=== PATIENT | male | born 1980 | race Caucasian/White ===

== ENCOUNTER 2016-10-17 16:58 | Emergency (ER) | payer MEDICAID ==
[~2016-10-17] VITALS: Ht 182.9 cm; Wt 78.5 kg
[~2016-10-17 16:58] MED LIST: LORTAB 5/500 501 TAB PO; ULTRAM50 MG PO
--- OUTSIDE RECORDS SUMMARY | 2016-10-17 17:22 | External Medical Summary Rpt ---
Author Author , GIFTY DURBIN Address Unknown Phone [email or web address] Care Team Providers Care Senior Marketing Coordinator Name Role Phone [facility] Unavailable Unavailable PHYSICIANS, [facility] Unavailable Unavailable MEDICAL GROUP, [facility] MONTOYA HOW, MONTOYA Unavailable Unavailable HOW BRENYO MAR, BRENYO Unavailable Unavailable MAR [facility], Un[facility] Unavailable [facility] Unavailable Unavailable [facility], [facility] HALLAK PAT, HALLAK Unavailable Unavailable PAT MINI BHUPINDER, MINI BHUPINDER Unavailable Unavailable RICK PIR, RICK PIR Unavailable Unavailable [facility], [facility] Unavailable Unavailable NEELY MAY, NEELY MAY Unavailable Unavailable MEENU MAR, MEENU Unavailable Unavailable MAR SOKAN BAB, SOKAN BAB Unavailable Unavailable SOKAN BAB, SOKAN BAB Unavailable Unavailable SPANIER MAR, SPANIER Unavailable Unavailable MAR JASPER VALERIO, JASPER VALERIO Unavailable Unavailable Purpose Continuity of Care Document - 01-05-2015 through 2016 Problems Code Diagnosis DOS Provider Status L0201 CUTANEOUS 09-01-2015 [facility] [id number] CELLULITIS 09-01-[address] [facility] B9562 METHICILLIN 08-31-2015 [facility] R[facility]ST [facility] CAUSE DZ CLASS ELSW K122 CELLULITIS 08-31-2015 [facility] AND [facility]SCESS [facility] K130 DISEASES OF 08-31-2015 [facility] LIPS [facility] L45625 FURUNCLE OF 08-31-2015 [facility] RIGHT [facility] Q13290 FURUNCLE OF 08-31-2015 [facility] L69686 CELLULITIS 08-31-2015 [facility] OF RIGHT EMERGENCY [facility] PHYS PSC [id number] UNDERDOSING 08-31-2015 [facility] OTH [facility] ANTIBIOTICS INIT ENCNTR Z8614 PERSONAL HX 08-31-2015 [facility] RSIST STAPH INFECTION [id number] CELLULITIS 08-10-2015 [facility] R52 PAIN 08-10-2015 [facility] [id number] ACUTE EMBO 08-09-2015 [facility] THROMB UNS [facility] DEEP VEINS MEDICAL UNS LOW GROUP EXTREM L0390 CELLULITIS 08-09-2015 [facility] Z720 TOBACCO USE 08-07-2015 [facility] J208 ACUTE 01-10-2015 [facility] BRONCHITIS EMERGENCY DUE TO PHYS PSC OTHER SPEC ORGANISMS J209 ACUTE 01-10-2015 [facility]ONCH[facility]IS [facility] K088 OTH SPEC 01-08-2015 [facility] PRIMARY DISORDERS CARE TEETH & PHYSICIANS SUPPORTING STRUCTURES X63345 EPILEPSY 01-05-2015 SYDNEY SIMON UNS NOT INTRACT W/O STATUS EPILEPTICUS Z760 ENCOUNTER 01-05-2015 SYDNEY SIMON FOR ISSUE OF REPEAT PRESCRIPTIO N Procedures Procedure DOS Code Location Performer Comment [facility] [address] [facility] [address] [place] [address] MEDICAL MANAGEMEN GROUP T > 30 MIN SBSQ [address]/DAY MEDICAL 35 GROUP MINUTES INITIAL [address]/DAY MEDICAL 70 GROUP MINUTES SBSQ [address]/DAY MEDICAL 25 GROUP MINUTES SBSQ [address]/[facility] MEDICAL 25 GROUP MINUTES SBSQ [address]/DAY MEDICAL 35 GROUP MINUTES INITIAL [address]/DAY MEDICAL 70 GROUP MINUTES Encounters Encounter Start End Date Code Location Performer Type Date EMERGENCY 78732 [facility] DE[facility] 6 6 EMERGENCY HOW VISIT PHYS PSC HIGH SEVERITY& THREAT [facility] 6 6 [facility] EM[facility]GENCY 08059 [facility] DEPT 6 6 EMERGENCY MAR VISIT PHYS PSC HIGH SEVERITY& THREAT FUN EMERGENCY 49914 [facility] 6 6 SOLEDAD MAR DEPARTMEN EMERGENCY T VISIT SERV MODERATE SEVERITY EMERGENCY 94865 [facility] 5 5 EMERGENCY DEPARTMEN PHYS PSC T VISIT MODERATE SEVERITY HOSPITAL [facility] - 5 5 [facility] T EMERGENCY 09955 [place] 5 5 [facility] DEPART[facility]OSP T VISIT LOW/MODER SEVERITY EMERGENCY 09171 NABEEL VALERIO 5 5 PRIMARY DEPARTMEN CARE T VISIT PHYSICIAN MODERATE S SEVERITY EMERGENCY 23083 SYDNEY SIMON 5 5 DEPARTMEN T VISIT MODERATE SEVERITY
--- OUTSIDE RECORDS SUMMARY | 2016-10-17 17:22 | External Medical Summary Rpt ---
Author Author , GIFTY DURBIN Address Unknown Phone [email or web address] Care Team Providers Care Windows Mobile Developer Name Role Phone [facility] Unavailable Unavailable PHYSICIANS, [facility] Unavailable Unavailable MEDICAL GROUP, [facility] MONTOYA HOW, MONTOYA Unavailable Unavailable HOW BRENYO MAR, BRENYO Unavailable Unavailable MAR [facility], Unavailable Unavailable [facility] Unavailable Unavailable PHYS [facility]SC, [...] Diagnosis DOS Provider Status L0201 CUTANEOUS 09-01-2015 [facility] [id number] CELLULITIS 09-01-2015 [facility]ACE [facility] B9562 METHICILLIN 08-31-2015 [facility] RSIST [facility] CAUSE DZ CLASS ELSW K122 CELLULITIS 08-31-2015 [facility] AND ABSCESS [facility] K130 DISEASES OF 08-31-2015 [facility] LIPS [facility] L08141 FURUNCLE OF 08-31-2015 [facility] N47821 FURUNCLE OF 08-31-2015 [facility] LEFT [facility] F62440 CELLULITIS 08-31-2015 [facility] OF RIGHT EMERGENCY [place] PHYS PSC [id number] UNDERDOSING 08-31-2015 [facility] OTH [facility] ANTIBIOTICS INIT ENCNTR Z8614 PERSONAL HX 08-31-2015 [facility] RSIST STAPH INFECTION S10533 CELLULITIS 08-10-2015 [facility] R52 PAIN 08-10-2015 [facility] [id number] ACUTE EMBO 08-09-2015 [facility] THROMB UNS HEALTH DEEP VEINS MEDICAL UNS LOW GROUP EXTREM L0390 CELLULITIS 08-09-2015 [facility] Z720 TOBACCO USE 08-07-2015 [facility] J208 ACUTE 01-10-2015 [facility] BRONCHITIS EMERGENCY DUE TO PHYS PSC OTHER SPEC ORGANISMS J209 ACUTE 01-10-2015 [facility]CH[facility] K088 OTH SPEC 01-08-2015 [facility] PRIMARY DISORDERS CARE TEETH & PHYSICIANS SUPPORTING STRUCTURES D28960 EPILEPSY 01-05-2015 SYDNEY SIMON UNS NOT INTRACT W/O STATUS EPILEPTICUS Z760 ENCOUNTER 01-05-2015 SYDNEY SIMON FOR ISSUE OF REPEAT PRESCRIPTIO N Procedures Procedure DOS Code Location Performer Comment HOSPITAL 55771 [facility] DISCHARGE [address] [place] [address] MEDICAL MANAGEMEN GROUP T > 30 MIN SBSQ [address]/DAY MEDICAL 35 GROUP MINUTES INITIAL [address]/DAY MEDICAL 70 GROUP MINUTES SBSQ [address]/DAY MEDICAL 25 GROUP MINUTES SBSQ [address] MEDICAL 25 GROUP MINUTES SBSQ [address]/DAY MEDICAL 35 GROUP MINUTES INITIAL [address]/DAY MEDICAL 70 GROUP MINUTES Encounters Encounter Start End Date Code Location Performer Type Date EMERGENCY 94165 [place] [facility] DEPT 6 6 EMERGENCY HOW VISIT PHYS PSC HIGH SEVERITY& THREAT [facility] 6 6 [facility] EMERGENCY 95094 [facility] DE[facility] 6 6 EMERGENCY MAR VISIT PHYS PSC HIGH SEVERITY& THREAT FUN EMERGENCY 49277 [facility] 6 6 SOLEDAD MAR DEPARTMEN EMERGENCY T VISIT SERV MODERATE SEVERITY EMERGENCY 58765 [facility] 5 5 EMERGENCY DEPARTMEN PHYS PSC T VISIT MODERATE SEVERITY HOSPITAL [facility] - 5 5 [facility] T EMERGENCY [address]48 [place] 5 5 [facility] DEPART[facility]OSP T VISIT LOW/MODER SEVERITY EMERGENCY 46204 [facility] JASPER VALERIO 5 5 PRIMARY DEPARTMEN CARE T VISIT PHYSICIAN MODERATE S SEVERITY EMERGENCY 51682 SYDNEY SIMON 5 5 DEPARTMEN T VISIT MODERATE SEVERITY
--- OUTSIDE RECORDS SUMMARY | 2016-10-17 17:22 | External Medical Summary Rpt ---
Demographics Preferred Language [place] Islander Marital Status Unknown Confucianism Affiliation Unknown Race Unknown Ethnic Group Unknown Author Author , LOYD DURBIN Address Unknown Phone [email or web address] Immunization Name Date Rout CVX Reac Dose Comm Prov Is Faci e tion ent ider Refu lity Give sed n Td 05-2 9 999 Hist H149 No H149 ([place] 07-21 [facility] lt), 99 al Info adso rmat rbed ion - Sour ce Unsp ecif ied
--- OUTSIDE RECORDS SUMMARY | 2016-10-17 17:22 | External Medical Summary Rpt ---
Author Author , GIFTY DURBIN Address Unknown Phone [email or web address] Care Team Providers Care Farmworker Poultry Name Role Phone [facility] Unavailable Unavailable PHYSICIANS, [facility] Unavailable Unavailable MEDICAL GROUP, [facility] MONTOYA HOW, MONTOYA Unavailable Unavailable HOW BRENYO MAR, BRENYO Unavailable Unavailable MAR [facility], Unavailable Unavailable [facility] Unavailable Unavailable PHYS PSC, [...] Diagnosis DOS Provider Status L0201 CUTANEOUS 09-01-2015 [facility] [id number] CELLULITIS 09-01-2015 [facility] B9562 METHICILLIN 08-31-2015 [facility] R[facility]ST [facility] CAUSE DZ CLASS ELSW K122 CELLULITIS 08-31-2015 [facility] AND [facility]ESS [facility] K130 DISEASES OF 08-31-2015 [facility] LIPS [facility] [id number] FURUNCLE OF 08-31-2015 [facility] D46390 FURUNCLE OF 08-31-2015 [facility] LEFT [facility] F88499 CELLULITIS 08-31-2015 [facility] OF RIGHT EMERGENCY [place] PHYS PSC [id number] UNDERDOSING 08-31-2015 [facility] OTH [facility] ANTIBIOTICS INIT ENCNTR Z8614 PERSONAL HX 08-31-2015 [facility] RSIST STAPH INFECTION I06644 CELLULITIS 08-10-2015 [facility] R52 PAIN 08-10-2015 [facility] Q97815 ACUTE EMBO 08-09-2015 [facility] THROMB UNS HEALTH DEEP VEINS MEDICAL UNS LOW GROUP EXTREM L0390 CELLULITIS 08-09-2015 [facility] Z720 TOBACCO USE 08-07-2015 [facility] J208 ACUTE 01-10-2015 [facility] BRONCHITIS EMERGENCY DUE TO PHYS PSC OTHER SPEC ORGANISMS J209 ACUTE 01-10-2015 [facility]ONCH[facility]IS [facility] K088 OTH SPEC 01-08-2015 [facility] PRIMARY DISORDERS CARE TEETH & PHYSICIANS SUPPORTING STRUCTURES B50154 EPILEPSY 01-05-2015 SYDNEY SIMON UNS NOT INTRACT W/O STATUS EPILEPTICUS Z760 ENCOUNTER 01-05-2015 SYDNEY SIMON FOR ISSUE OF REPEAT PRESCRIPTIO N Procedures Procedure DOS Code Location Performer Comment HOSPITAL 84348 [facility] [address] [place] [address] MEDICAL MANAGEMEN GROUP T > 30 MIN SBSQ [address]/DAY MEDICAL 35 GROUP MINUTES INITIAL [address]/DAY MEDICAL 70 GROUP MINUTES SBSQ [address]/DAY MEDICAL 25 GROUP MINUTES SBSQ [address]/[facility] MEDICAL 25 GROUP MINUTES SBSQ [address]/DAY MEDICAL 35 GROUP MINUTES INITIAL [address]/DAY MEDICAL 70 GROUP MINUTES Encounters Encounter Start End Date Code Location Performer Type Date EMERGENCY 79030 [facility] DEPT 6 6 EMERGENCY HOW VISIT PHYS PSC HIGH SEVERITY& THREAT [facility] 6 6 [facility] EMERGENCY 85246 [facility] DEPT 6 6 EMERGENCY MAR VISIT PHYS PSC HIGH SEVERITY& THREAT FUN EMERGENCY 71980 [facility] 6 6 SOLEDAD MAR DEPARTMEN EMERGENCY T VISIT SERV MODERATE SEVERITY EMERGENCY 13069 [facility] 5 5 EMERGENCY DEPARTMEN PHYS PSC T VISIT MODERATE SEVERITY HOSPITAL [facility] - 5 5 [facility] T EMERGENCY 98902 [facility] 5 5 [facility]OSP T VISIT LOW/MODER SEVERITY EMERGENCY 83851 NABEEL VALERIO 5 5 PRIMARY DEPARTMEN CARE T VISIT PHYSICIAN MODERATE S SEVERITY EMERGENCY 50923 SYDNEY SIMON 5 5 DEPARTMEN T VISIT MODERATE SEVERITY
--- OUTSIDE RECORDS SUMMARY | 2016-10-17 17:22 | External Medical Summary Rpt ---
Demographics Preferred Language Omani Marital Status Unknown Quaker Affiliation Unknown Race Unknown Ethnic Group Unknown Author Author , LOYD DURBIN Address Unknown Phone [email or web address] Immunization Name Date Rout CVX Reac Dose Comm Prov Is Faci e tion ent ider Refu lity Give sed n Td 05-2 9 999 Hist H149 No H149 ([place] 07-21 [facility] lt), 99 al Info adso rmat rbed ion - Sour ce Unsp ecif ied
--- OUTSIDE RECORDS SUMMARY | 2016-10-17 17:22 | External Medical Summary Rpt ---
Author Author , GIFTY DURBIN Address Unknown Phone [email or web address] Care Team Providers Care Solar Field Service Technician Name Role Phone [facility] Unavailable Unavailable PHYSICIANS, [facility] Unavailable Unavailable MEDICAL GROUP, [facility] MONTOYA HOW, MONTOYA Unavailable Unavailable HOW BRENYO MAR, BRENYO Unavailable Unavailable MAR [facility], Unavailable Unavailable [facility] Unavailable Unavailable PHYS [facility], [...] Diagnosis DOS Provider Status L0201 CUTANEOUS 09-01-2015 [facility] [id number] CELLULITIS 09-01-2015 [facility] OF FACE [facility] B9562 METHICILLIN 08-31-2015 CENTRAL RSIST [facility] CAUSE DZ CLASS ELSW K122 CELLULITIS 08-31-2015 [facility] AND ABSCESS [facility] K130 DISEASES OF 08-31-2015 [facility] LIPS [facility] F88252 FURUNCLE OF 08-31-2015 [facility]AL RIGHT [facility] S00569 FURUNCLE OF 08-31-2015 [facility]AL LEFT LOWER [facility] L02424 CELLULITIS 08-31-2015 CENTRAL OF RIGHT EMERGENCY [place]OWER [place] PHYS PSC [id number] UNDERDOSING 08-31-2015 CENTRAL OTH [facility] ANTIBIOTICS INIT ENCNTR Z8614 PERSONAL HX 08-31-2015 [facility] RSIST STAPH INFECTION K84511 CELLULITIS 08-10-2015 [facility] R52 PAIN 08-10-2015 [facility] G46003 ACUTE EMBO 08-09-2015 EPISCOPAL THROMB UNS HEALTH DEEP VEINS MEDICAL UNS LOW GROUP EXTREM L0390 CELLULITIS 08-09-2015 [facility] Z720 TOBACCO USE 08-07-2015 [facility] J208 ACUTE 01-10-2015 C[facility]AL BRONCHITIS EMERGENCY DUE TO PHYS PSC OTHER SPEC ORGANISMS J209 ACUTE 01-10-2015 [facility] BRONCHITIS [facility] K088 OTH SPEC 01-08-2015 [facility] PRIMARY DISORDERS CARE TEETH & PHYSICIANS SUPPORTING STRUCTURES Z51855 EPILEPSY 01-05-2015 SYDNEY SIMON UNS NOT INTRACT W/O STATUS EPILEPTICUS Z760 ENCOUNTER 01-05-2015 SYDNEY SIMON FOR ISSUE OF REPEAT PRESCRIPTIO N Procedures Procedure DOS Code Location Performer Comment HOSPITAL 33453 [facility] DIS[facility]GE [address] [place] [address] MEDICAL MANAGEMEN GROUP T > 30 MIN SBSQ [address]/DAY MEDICAL 35 GROUP MINUTES INITIAL [address]/DAY MEDICAL 70 GROUP MINUTES SBSQ [address]/DAY MEDICAL 25 GROUP MINUTES SBSQ [address] MEDICAL 25 GROUP MINUTES SBSQ [address]/DAY MEDICAL 35 GROUP MINUTES INITIAL [address]/DAY MEDICAL 70 GROUP MINUTES Encounters Encounter Start End Date Code Location Performer Type Date EMERGENCY 74292 [place] [facility] DEPT 6 6 EMERGENCY HOW VISIT PHYS PSC HIGH SEVERITY& THREAT [facility] 6 6 [facility]IENT [facility] EMERGENCY 63201 [facility] DEPT 6 6 EMERGENCY MAR VISIT PHYS PSC HIGH SEVERITY& THREAT FUN EMERGENCY 69190 [facility] 6 6 SOLEDAD MAR DEPARTMEN EMERGENCY T VISIT SERV MODERATE SEVERITY EMERGENCY 43094 [facility] 5 5 EMERGENCY DEPARTMEN PHYS PSC T VISIT MODERATE SEVERITY HOSPITAL [facility] - 5 5 [facility] OUT[facility] T EMERGENCY 37289 [place] 5 5 EPISCOPAL DEPARTMEN HOSP T VISIT LOW/MODER SEVERITY EMERGENCY 22594 [facility] JASPER VALERIO 5 5 PRIMARY DEPARTMEN CARE T VISIT PHYSICIAN MODERATE S SEVERITY EMERGENCY 17215 SYDNEY SIMON 5 5 DEPARTMEN T VISIT MODERATE SEVERITY
--- NOTE | 2016-10-17 17:28 | Urgent Treatment Center Report ---
History of Present Issue Date/Time Seen by Provider 10/17/16 1726 Visit Reason Pt arrived:Walked Presenting Problem:PT IS C/O EYE IRRITATION THAT STARTED 2 DAYS AGO. PT IS C/O CLEAR DRAINIAGE AND SENSITIVITY TO LIGHT. Location if Accident: Onset of symptoms date/time:/ or onset unknown for:MEDICAL HX UNKNOWN Have you (or family members/close friends) recently traveled outside the [place]? N If Yes, where/when: Have you had exposure to infectious disease within the past month? TB? Other? Specify: Patient states that about 2 days ago he noticed that his eyes felt irritated and was watering and draining. States that he noticed that his eyes looked red and was matted when he would wake up. States that he eyes have continued to get more red and he has had conjunctivitis before and this feels just like it did then ALLERGIES Coded Allergies: No Known Allergies (10/17/16) History Medical History General CAD? No Angina: No LA: No Hypertension? No Hyperlipidemia? No CHF? No DVT? No PE? No COPD? No Asthma? No Anemia? No GERD? No Gastric ulcers? No GI Bleed? No Hernia? No Thyroid Problems? No Hypothyroidism? No CVA? No Seizures? No Diabetes? No Renal Insuffiency? No UTI? No Stones? No BPH? No GB Disease: No Nephritic Syndrome? No Asplenia? No Hepatitis? No Sickle Cell Disease? No Arthritis? No Migraines? No Cataracts? No Glaucoma? No MRSA? No HIV? No TB? No Anxiety? No Depression? No Cancer? No Site: N Immunization HX DT/Tetanus 1-4 YRS Surgical Hx Previous Surgery?Y FOOT SUGERY X3 4,6,09/04 Social History Smoking Hx Smoker: Current Every Day Smoker Tobacco: Yes Type Cigarettes Packs/day < 1 Pack Alcohol Alcohol: No Review of Systems All Other Systems Reviewed and Negative Eyes inflammation Comment Redness and drainage both eyes for 2 days that is matting together Physical Exam Vital Signs Vital Signs Date Time Temp Pulse Resp B/P Pulse O2 O2 Flow FiO2 Ox Delivery Rate 10/17 1707 97.9 82 20 126/76 97 General Appearance normal appearance, WD/WN, no apparent distress Respiratory Status Yes: trachea midline, chest symmetrical, non tender chest. No: respiratory distress. Cardiovascular normal exam, regular rate/rhythm, no peripheral edema, no gallop Neurologic alert, jointer submarine cable II-XII nml as tested, normal exam, no motor/sensory deficits, oriented x 3 Comments Bilateral eyes red, yellowish drainage noted, crusty like substance noted on eyes, Conjunctiva red Medical Decision Making LABS/Meds/Orders Pt receiving controlled substance in ED? No Departure Departure Time of Disposition 1731 Disposition DC Home or Self Care(routine) Clinical Impression Primary Impression: Bilateral conjunctivitis Qualifiers: Conjunctivitis type: unspecified Qualified Code: H10.9 - Unspecified conjunctivitis Condition STABLE Referrals RICO JAVED (Family) Patient Instructions Conjunctivitis, DI for Conjunctivitis Additional Instructions Wash hands well and do not touch eyes Use drops as prescribed Return if needed If eyes matted use warm wash rags to help remove matting Follow up with family doctor Discharge Counseling Counseled pt/family regarding diagnosis, medications/RX, home care Prescriptions Current Visit Scripts GENTAMICIN SULFATE (GENTAMICIN 0.3% OPHTH SOLHilda) 1-2 DROP OP Q4 #1 BOT TO AFFECTED EYE(S) at 173
[2016-10-17] MEDS ORDERED: GENTAMICIN O5 ML/BOT OP (17:35)
[2016-10-17 17:41] VITALS: BP 126/76
== END 2016-10-17 17:41 | disposition home or self-care (01) ==
LOC: UTC 16:58
DX: H10.33 Unspecified acute conjunctivitis, bilateral (principal)

== ENCOUNTER 2016-11-13 12:38 | Emergency (ER) | payer MEDICAID ==
[~2016-11-13] VITALS: Ht 182.9 cm; Wt 84.8 kg
[~2016-11-13 12:38] MED LIST changes: +GENTAMICIN O5 ML/BOT OP
[2016-11-13 13:23] LABS: HEMOGLOBIN 15.4 g/dL (14.1-18.0); LYMPH # 1.4 K/mm3 (0.7-4.5); LYMPH % 12.4 % (10-50)
--- NOTE | 2016-11-13 13:44 | Emergency Room Report ---
History of Present Illness Time Seen by 1300 Presenting Problem in Triage Pt arrived:Walked Presenting Problem:PT LEFT SIDE OF HIS FACE SWOLLEN. ADVISES HE HAS AN ABCESSED TOOTH HE ADVISES HE WOKE UP THIS AM WITH FACE SWOLLEN Onset of symptoms date/time:/ or onset unknown for:MEDICAL HX UNKNOWN Treatment Prior to Arrival: PROGRAM ASSISTANT Provided by: Sepsis Risk Assessment: Temp: 98.6 B/P: 140/70 MAP: 93 Pulse: 92 Resp: 16 Recent fever? N Clinical Suspician of Infection? N Mental Status: 1 - Regular (Normal Baseline) Sepsis Risk:Low Sepsis Risk Have you (or family members/close friends) recently traveled outside the [place]? N If Yes, where/when: Have you had exposure to infectious disease within the past month? N TB? Other? Specify: Left lower gum swelling and odontalgia x one week, doesn't have a dentist; no fever or vomiting; has had increased facial edema x one to three days, worse since last night; able to keep PO fluids down. Not diabetic. ALLERGIES Coded Allergies: No Known Allergies (10/17/16) Home Medications Reported Medications No Known Home Medications History Medical History General CAD? No Angina: No ND: No Hypertension? No Hyperlipidemia? No CHF? No DVT? No PE? No COPD? No Asthma? No Anemia? No GERD? No Gastric ulcers? No GI Bleed? No Hernia? No Thyroid Problems? No Hypothyroidism? No CVA? No Seizures? No Diabetes? No Renal Insuffiency? No End Stage Renal Disease? No UTI? No Stones? No BPH? No GB Disease: No Nephritic Syndrome? No Asplenia? No Hepatitis? No Sickle Cell Disease? No Arthritis? No Migraines? No Cataracts? No Glaucoma? No MRSA? No HIV? No TB? No Anxiety? No Depression? No Cancer? No Site: N Immunization Hx DT/Tetanus 1-4 YRS Surgical Hx Previous Surgery?Y FOOT SUGERY X3 4,6,09/04 Social History Smoking Hx Smoker: Current Every Day Smoker Tobacco: Yes Type Cigarettes Packs/day < 1 Pack Alcohol Alcohol: No Review of Systems All Other Systems Reviewed and Negative ENT dental caries (facial swelling). Physical Exam Vital Signs Vital Signs Date Time Temp Pulse Resp B/P Pulse O2 O2 Flow FiO2 Ox Delivery Rate 11/13 1358 86 18 120/73 96 11/13 1354 18 11/13 1244 98.6 92 16 140/70 98 General Appearance normal appearance, WD/WN, no apparent distress Ear, Nose, Throat exquisitely tender gum, left lower, with gingival swelling; has facial swelling w/o redness or palpable abscess. Neck normal inspection, non-tender, supple, full range of motion Respiratory Status Yes: trachea midline. No: respiratory distress. 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 No Results/Orders Laboratory Tests 11/13/16 131: Lactic Acid 1.1 11/13/16 131: Sodium 141, Potassium 4.2, Chloride 104, Carbon Dioxide 25, BUN 11, Creatinine 1.0, Estimated Creat Clear 126, Estimated GFR (MDRD) 86, Glucose 82, Calcium 9.1 , Total Bilirubin 0.4, AST 27, ALT 55, Alkaline Phosphatase 90, Total Protein 8.1, Albumin 4.2, Globulin 3.9 H, Albumin/Globulin Ratio 1.1, WBC 11.6 H, RBC 5.26, Hgb 15.4, Hct 44.7, MCV 85.0, RDW 12.9, Plt Count 302, MPV 7.7, Gran % 81.3 H, Gran # 9.4 H, Lymphocytes % 12.4, Monocytes % 4.0, Eosinophils % 2.1, Basophils % 0.3, Lymphocytes # 1.4, Monocytes # 0.5, Eosinophils # 0.2, Basophils # 0.0, PUBS MCHC 34.3, MCH 29.2 Current Medication Orders Sig/Edgar Start time Last Medication Dose Route Stop Time Status Admin Ceftriaxone Sodium 0 .STK-MED ONE 11/14 1351 DC IV Ketorolac 0 .STK-MED ONE 11/14 1351 DC Tromethamine .ROUTE Sodium Chloride 50 ML .STK-MED ONE 09/11 1352 DC IV Ceftriaxone Sodium 1 GM ONCE ONE 11/13 1345 DC 11/13 Sodium Chloride 50 ML IV 11/13 1414 1354 Ketorolac 30 MG ONCE ONE 11/13 1345 DC 11/13 Tromethamine IV 11/13 1346 1354 Sodium Chloride 10 ML PRN PRN 11/13 1300 AC IV 11/14 1252 Orders Procedure Date/time Status C-REACTIVE PROTEIN 11/[address] SCAN REQUEST 11/13 1253 Active IV SALINE LOCK 11/13 1253 Active CULTURE, BLOOD 11/13 1253 Active LACTIC ACID 11/13 1253 Complete CBC WITH AUTO DIFF 11/13 1253 Complete CHEM 12 PROFILE 11/13 1253 Complete XRAY/CT/US XRAY/CT/US CT head (STS with gas, buccal;myositis) Time results known: 1442 CT Results abnormal, myositis, left facial swelling, with gas in buccal region per report Consult MD Physician Consult 1 Consult/PCP Dr. Jewell ENT: call Time Called 1441 Reason ENT eval/care Physician Consult 2 Time Called 1456 Reason Pt. Condition Comments Dr. Garza [facility]NT [place]: call [facility] [place] Physician Consult 3 Consult/PCP Dr. Jluis MULLER accepting: send to ED Time Called 1456 Reason Transfer to facility Comments [facility] paged. Departure Departure Time of Disposition 1442 Disposition DC/XFER from ER to [facility] Clinical Impression Primary Impression: Facial infection Condition STABLE Prescriptions Current Visit Scripts No Known Home Medications ED Critical Care Critical Care No
--- NOTE | 2016-11-13 13:44 | Emergency Room Report ---
History of Present Illness Time Seen by 1300 Presenting Problem in Triage Pt arrived:Walked Presenting Problem:PT LEFT SIDE OF HIS FACE SWOLLEN. ADVISES HE HAS AN ABCESSED TOOTH HE ADVISES HE WOKE UP THIS AM WITH FACE SWOLLEN Onset of symptoms date/time:/ or onset unknown for:MEDICAL HX UNKNOWN Treatment Prior to Arrival: CARPET LAYER Provided by: Sepsis Risk Assessment: Temp: 98.6 B/P: 140/70 MAP: 93 Pulse: 92 Resp: 16 Recent fever? N Clinical Suspician of Infection? N Mental Status: 1 - Regular (Normal Baseline) Sepsis Risk:Low Sepsis Risk Have you (or family members/close friends) recently traveled outside the [place]? N If Yes, where/when: Have you had exposure to infectious disease within the past month? N TB? Other? Specify: Left lower gum swelling and odontalgia x one week, doesn't have a dentist; no fever or vomiting; has had increased facial edema x one to three days, worse since last night; able to keep PO fluids down. Not diabetic. ALLERGIES Coded Allergies: No Known Allergies (10/17/16) Home Medications Reported Medications No Known Home Medications History Medical History General CAD? No Angina: No AR: No Hypertension? No Hyperlipidemia? No CHF? No DVT? No PE? No COPD? No Asthma? No Anemia? No GERD? No Gastric ulcers? No GI Bleed? No Hernia? No Thyroid Problems? No Hypothyroidism? No CVA? No Seizures? No Diabetes? No Renal Insuffiency? No End Stage Renal Disease? No UTI? No Stones? No BPH? No GB Disease: No Nephritic Syndrome? No Asplenia? No Hepatitis? No Sickle Cell Disease? No Arthritis? No Migraines? No Cataracts? No Glaucoma? No MRSA? No HIV? No TB? No Anxiety? No Depression? No Cancer? No Site: N Immunization Hx DT/Tetanus 1-4 YRS Surgical Hx Previous Surgery?Y FOOT SUGERY X3 4,6,09/04 Social History Smoking Hx Smoker: Current Every Day Smoker Tobacco: Yes Type Cigarettes Packs/day < 1 Pack Alcohol Alcohol: No Review of Systems All Other Systems Reviewed and Negative ENT dental caries (facial swelling). Physical Exam Vital Signs Vital Signs Date Time Temp Pulse Resp B/P Pulse O2 O2 Flow FiO2 Ox Delivery Rate 11/13 1358 86 18 120/73 96 11/13 1354 18 11/13 1244 98.6 92 16 140/70 98 General Appearance normal appearance, WD/WN, no apparent distress Ear, Nose, Throat exquisitely tender gum, left lower, with gingival swelling; has facial swelling w/o redness or palpable abscess. Neck normal inspection, non-tender, supple, full range of motion Respiratory Status Yes: trachea midline. No: respiratory distress. 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 No Results/Orders Laboratory Tests 11/13/16 131: Lactic Acid 1.1 11/13/16 131: Sodium 141, Potassium 4.2, Chloride 104, Carbon Dioxide 25, BUN 11, Creatinine 1.0, Estimated Creat Clear 126, Estimated GFR (MDRD) 86, Glucose 82, Calcium 9.1 , Total Bilirubin 0.4, AST 27, ALT 55, Alkaline Phosphatase 90, Total Protein 8.1, Albumin 4.2, Globulin 3.9 H, Albumin/Globulin Ratio 1.1, WBC 11.6 H, RBC 5.26, Hgb 15.4, Hct 44.7, MCV 85.0, RDW 12.9, Plt Count 302, MPV 7.7, Gran % 81.3 H, Gran # 9.4 H, Lymphocytes % 12.4, Monocytes % 4.0, Eosinophils % 2.1, Basophils % 0.3, Lymphocytes # 1.4, Monocytes # 0.5, Eosinophils # 0.2, Basophils # 0.0, PUBS MCHC 34.3, MCH 29.2 Current Medication Orders Sig/Edgar Start time Last Medication Dose Route Stop Time Status Admin Ceftriaxone Sodium 0 .STK-MED ONE 11/14 1351 DC IV Ketorolac 0 .STK-MED ONE 11/14 1351 DC Tromethamine .ROUTE Sodium Chloride 50 ML .STK-MED ONE 09/11 1352 DC IV Ceftriaxone Sodium 1 GM ONCE ONE 11/13 1345 DC 11/13 Sodium Chloride 50 ML IV 11/13 1414 1354 Ketorolac 30 MG ONCE ONE 11/13 1345 DC 11/13 Tromethamine IV 11/13 1346 1354 Sodium Chloride 10 ML PRN PRN 11/13 1300 AC IV 11/14 1252 Orders Procedure Date/time Status C-REACTIVE PROTEIN 11/[address] SCAN REQUEST 11/13 1253 Active IV SALINE LOCK 11/13 1253 Active CULTURE, BLOOD 11/13 1253 Active LACTIC ACID 11/13 1253 Complete CBC WITH AUTO DIFF 11/13 1253 Complete CHEM 12 PROFILE 11/13 1253 Complete XRAY/CT/US XRAY/CT/US CT head (STS with gas, buccal;myositis) Time results known: 1442 CT Results abnormal, myositis, left facial swelling, with gas in buccal region per report Consult MD Physician Consult 1 Consult/PCP Dr. Jewell ENT: call Time Called 1441 Reason ENT eval/care Physician Consult 2 Time Called 1456 Reason Pt. Condition Comments Dr. Garza [facility]NT [place]: call [facility] [place] Physician Consult 3 Consult/PCP Dr. Jluis MULLER accepting: send to ED Time Called 1456 Reason Transfer to facility Comments [facility] paged. Departure Departure Time of Disposition 1442 Disposition DC/XFER from ER to [facility] Clinical Impression Primary Impression: Facial infection Condition STABLE Prescriptions Current Visit Scripts No Known Home Medications ED Critical Care Critical Care No
--- NOTE | 2016-11-13 14:15 | RADIOLOGY REPORT PS360 ---
CT SINUS (MAX-FACIAL W/O CONT) CLINICAL INDICATION: LEFT SIDED FACIAL SWELLING ORDERING PHYSICIAN: Janey Mac MD PATIENT AGE: 35 years COMPARISON: None TECHNIQUE:Axial, sagittal, and coronal images are generated and reviewed without contrast FINDINGS: No sinus air-fluid level is evident. There is mucosal thickening involving the floor the right maxillary sinus somewhat lobular in nature measuring up to 13 mm and may be due to a retention cyst. The root of the right posterior maxillary molar does somewhat extending into the floor the right maxillary sinus with discontinuity of the bone along the root of the maxillary molar. This is of questioned clinical significance. There is severe subcutaneous soft tissue swelling involving the left lower maxillary region and mandibular area with thickening of the fascial fascia in the left masseter muscle. Cannot exclude the possibility of an abscess without IV contrast. No air-fluid levels are evident. Small amount of gas is present along the buccal aspect of the mandible and could be gas within the folds of the buccal region or could be related to soft tissue gas. Multiple caries are noted especially in the left mandibular area of periapical lucencies are present about the left mandibular molars and premolars. IMPRESSION: 1. Left facial cellulitis and myositis. There is extensive soft tissue swelling in the left mandibular area. Cannot exclude the possibility of abscess without contrast. Small amount gas is present in the buccal region of the left mandibular area and could be within the folds of the buccal mucosa could represent soft tissue gas. 2. Multiple mandibular caries more extensive on the left with periapical lucencies along the left molars and premolars consistent with periapical abscesses.
[2016-11-13 16:15] VITALS: BP 125/70
== END 2016-11-13 16:17 | disposition short-term general hospital (02) ==
LOC: ER 12:38
PROVIDERS: Emergency Medicine
DX: L08.89 Other specified local infections of the skin and subcutaneous tissue (principal)